=== PATIENT | male | born 1985 | race Hispanic/Latino ===

== ENCOUNTER 2017-01-16 16:01 | Emergency (ER) | payer SELFPAY ==
[~2017-01-16] VITALS: Ht 170.2 cm; Wt 69.5 kg
[2017-01-16] MEDS ORDERED: FLEXERIL10 MG PO (18:57)
[2017-01-16] MEDS ORDERED: LIDODERM 5% P1 PATCH TD (18:57)
[2017-01-16] MEDS ORDERED: PREDNISONE20 MG PO (18:57)
[2017-01-16 19:54] VITALS: BP 132/84
== END 2017-01-16 19:55 | disposition home or self-care (01) ==
LOC: EME 16:01
DX: M54.16 Radiculopathy, lumbar region (principal)
CPT/HCPCS: 99281; 99284; J1885; J7512

== ENCOUNTER 2017-01-22 11:11 | Emergency (ER) | payer SELFPAY ==
[~2017-01-22] VITALS: Ht 175.3 cm; Wt 68.9 kg
[~2017-01-22 11:11] MED LIST: FLEXERIL10 MG PO; LIDODERM 5% P1 PATCH TD; PREDNISONE20 MG PO
[2017-01-22 14:07] VITALS: BP 136/77
== END 2017-01-22 14:09 | disposition home or self-care (01) ==
LOC: EME 11:11
DX: S33.5XXD Sprain of ligaments of lumbar spine, subsequent encounter (principal); X58.XXXD Exposure to other specified factors, subsequent encounter; Z02.89 Encounter for other administrative examinations
CPT/HCPCS: 99281; 99283